=== PATIENT | male | born 1955 | race Caucasian/White ===

== ENCOUNTER 2018-06-01 13:35 | Day surgery (SDC) | payer OTHER, SELFPAY ==
--- NOTE | 2018-06-01 | DI.CT.S_ITS ---
PROCEDURE: CT SOFT TISSUE NECK WO CON INDICATIONS: wire brush bristle lodged in neck/esophagus TECHNIQUE: Non-contrast 3.0 mm axial sections acquired from the sella to the aortic arch. Additional oblique axial 3.0 mm sections acquired through the pharynx. 3 mm thick coronal and sagittal reformats were generated. For radiation dose reduction, the following was used: automated exposure control. COMPARISON: Outside Facility, RG, CT NECK SOFT TISSUE W / WO CONTRAST, 05/13/2018, 9:24. FINDINGS: Image quality: Excellent. Lymph nodes: No enlarged lymph nodes seen throughout the neck. Vessels: Non-opacified vessels appear normal in caliber. Neck spaces: Again noted is a linear ~12 mm metallic foreign body embedded or deep to the mucosa posterior and right of the arytenoid cartilage, minimally changed in position compared to 05/13/2018. There is persistent soft tissue edema and stranding at this level. The oropharynx, nasopharynx, and pharynx demonstrate no mucosal lesions. The vocal cords, false vocal cords, pyriform sinuses, epiglottis, vallecula, and tongue base all appear normal. Extramucosal spaces appear unremarkable. Glands: The parotid and submandibular glands appear normal, without stones. Thyroid gland is normal. Miscellaneous: Visualized brain and orbits appear normal. Lung apices appear clear. Superficial soft tissues appear normal. There is a small hiatal hernia. IMPRESSION: 1. A linear metallic foreign body in hypopharynx embedded in the mucosa posterior right of the arachnoid cartilage. There is persistent soft tissue edema and stranding in the adjacent area. It is minimally changed when compared to the last exam dated 05/13/2018. 2. Small hiatal hernia. The result was discussed with Dr. Pickett on 06/01/2018 at 1640 hours. Dictated by: Dion Sosa M.D. on 06/01/2018 at 16:48 Approved by: Dion Sosa M.D. on 06/01/2018 at 18:59
[2018-06-01 14:47] VITALS: BP 133/80; PULSE 48; RESP 16; TEMP 36.3; O2SAT 100; BMI 30.5
[2018-06-01] MEDS: LACTATED RINGERS 1,000 ML 100 ML IV (15:09)
--- NOTE | 2018-06-01 15:35 | PM.HP.1 ---
History of Present Illness Date Patient Seen: 06/01/18 Time Patient Seen: 15:35 Chief complaint: [id number] EGD POSS DIRECT LARYNGOSCOPY Narrative: The patient is a gentleman who was growing and ended up swallowing a metal piece of a brush and it is lodged near his larynx. Attempts were made to remove it around May 13 and multiple attempts failed. He had CT scans that showed the area of lodging. The patient states that initially it felt like it was up near his voice box and now it is about an inch or 2 lower that he thinks it is. He still has the sensation is there when he swallows. He did have some food poisoning and vomiting after this occurred. Patient History Medical History History of lymphoma (Resolved) Family & Social History Social History: household members spouse Meds Home Medications Medication Instructions Recorded Confirmed Type omeprazole magnesium [Prilosec OTC] 20 mg PO DAILY 06/01/18 06/01/18 History Allergies Allergy/AdvReac Type Severity Reaction Status Date / Time No Known Drug Allergies Allergy Verified 06/01/18 15:06 Review of Systems Review of Systems Patient denies visual difficulties double vision pain is eyes earache . No sore throat or trouble swallowing prior to this event. He has them now however. No cough cold or asthma. No chest pain heart problems unusual shortness of breath. No hypertension. No black or bloody bowel movements. Last colonoscopy for screening purposes was about 6 months ago. No problems urinating blood in his urine or kidney stones. No seizures or blackouts. No unusual bruising or bleeding. Exam Vital Signs (past 8 hours): - 06/01/18 14:47 Temperature 97.3 F L Pulse Rate 48 L Respiratory Rate 16 Blood Pressure 133/80 Pulse Oximetry 100 Oxygen Delivery Method Room Air Narrative Exam Narrative: Operative no apparent distress. His eyes are nonicteric. Lungs are clear to auscultation without rales or rhonchi. Heart regular rate and rhythm without murmur gallop. No heave lift or thrill. No bruit in the neck. Abdomen is scaphoid soft nontender without mass. No tenderness in the throat or neck. No redness. No nodes felt the neck or supraclavicular areas. Tongue is midline and some a it and uvula elevates in the midline. Alert and oriented x3. Assessment & Plan Plan: Assessment/Plan Narrative: Foreign body metal strands from a brush in the neck somewhere around the larynx. I will attempt to visualize and remove it. If unsuccessful will scan and refer. I have discussed the procedure with the patient. Risks of bleeding perforation failure to find discussed. Aspiration discussed. All questions answered.
--- NOTE | 2018-06-01 15:42 | PM.PREOP ---
Pre-operative Note Interval Note Pre-op Check: Yes History & Physical exam performed today by Physician Changes: No
[2018-06-01 16:24] VITALS: BP 103/70; PULSE 62; RESP 10; TEMP 36.5; O2SAT 100
[2018-06-01] MEDS: TETRACAINE/BENZOCAINE/BUTAMBEN (CETACAINE) BOTTLE 1 SPRAY TOP (16:24)
[2018-06-01 16:29] VITALS: BP 119/70; PULSE 58; RESP 12; O2SAT 98
--- NOTE | 2018-06-01 16:34 | SUR.PHASEI ---
Cam, appropraie, VSS. To radiology for CT with consent of Dr. Rivera.
--- NOTE | 2018-06-01 16:35 | PM.OP.ENDO ---
Operative Date/Time/Diagnoses Date of procedure: 06/01/18 Time of procedure: 16:15 Pre-op diagnosis: Foreign body in the air digestive tract Post-op diagnosis: same (Metal strands from a brush. Unable to visualize.) Procedure & Clinicians Study performed: Esophagoscopy Same procedure as scheduled: Yes Indications: Foreign body lodged in the soft tissues near the level of the larynx Surgeon: Sincere Pickett Procedure Notes SCOAP/Timeout: Performed Procedure in detail: Patient is placed supine on the operating room table and underwent monitored anesthesia care and/deep sedation. Oropharynx was anesthetized with topical Cetacaine. Endoscope was advanced through a bite block and under direct vision we visualized the structures very carefully from the base of the tongue to 30 cm from the incisors. Initially a very carefully examined all the areas around the larynx and could not identify any inflammation perforation drainage of purulent material for a visible metallic foreign body. After carefully examining both the right and left sides as well as in the region the epiglottis and had excellent visualization I decided to go deeper and under direct vision inserted the scope to a depth of 30 cm from the incisors. This was well into the esophagus. I then slowly brought the scope out and again visualized all the areas very carefully. Visualization was felt to be excellent. There was nothing that I could identify suggesting a foreign body that I could remove with an endoscope and a grasper. The scope was removed and patient will be sent for CT scan to evaluate the location further. Suspect it has migrated under the surface and may no longer be extracted endoscopically. Scope withdrawal time: Not applicable Findings: other findings (No visible foreign body phoned) Specimen(s): none sent Complications: none Recommendations: Other recommendation (Dependent on CT findings) Plan for aftercare: Probable referral to tertiary care center Disposition: PACU
[2018-06-01 16:45] VITALS: BP 112/68; PULSE 60; RESP 14; TEMP 36.8; O2SAT 98
[2018-06-01 17:15] VITALS: BP 113/70; PULSE 61; RESP 15; TEMP 36.7; O2SAT 98
[2018-06-01 17:29] LABS: Add Manual Diff / Slide Review NO; Basophils Percent Auto 0.6 % (0-2); Eosinophils Percent Auto 1.7 % (2-4); Hematocrit 41.8 % (41-53); Hemoglobin 14.2 g/dL (13.5-17.5); Lymphocytes Percent Auto 12.4 % (25-40); Mean Corpuscular HGB Conc 33.9 % (30-36); Mean Corpuscular Hemoglobin 31.7 PG (26-34); Mean Corpuscular Volume 93.5 fL (80-100); Monocytes Percent Auto 9.4 % (3-14); Neutrophils Absolute Auto 3800 /uL (3000-5900); Neutrophils Percent Auto 75.9 % (50-75); Platelet Count 148 X10^3/uL (150-400); Red Blood Cell Count 4.47 X10^6/uL (4.5-5.9); Red Cell Distribution Width 13.6 % (11.6-14.8)
[2018-06-01 18:00] VITALS: BP 106/65; PULSE 56; RESP 16; TEMP 37.1; O2SAT 98
== END 2018-06-01 18:15 | disposition home or self-care (01) ==
PROVIDERS: PCP Family Medicine Geriatric Medicine; Visit Provider Specialist
PROC: 0DJ08ZZ Inspection of Upper Intestinal Tract, Via Natural or Artificial Opening Endoscopic (ICD-10-PCS; CPT 43235; principal; 2018-06-01 15:15)
DX: T18.198A Other foreign object in esophagus causing other injury, initial encounter (principal)
CPT/HCPCS: 43235; 36415; 70490; 85025; J2250; J2704; J3010

== ENCOUNTER → 2018-10-31 19:32 | Outpatient (REF) | payer OTHER, SELFPAY | LOC: LAB 19:32 | PROVIDERS: PCP Family Medicine Geriatric Medicine; Visit Provider Family Medicine Geriatric Medicine | DX: R10.9 Unspecified abdominal pain (principal); R63.5 Abnormal weight gain | CPT/HCPCS: 82710; 87177 ==